=== PATIENT | female | born 1990 | race African-American/Black ===

== ENCOUNTER 2025-08-14 17:44 | Emergency (ER) | payer OTHER, MEDICAID ==
[~2025-08-14] VITALS: Ht 170.2 cm; Wt 91.0 kg
[2025-08-14 17:47] VITALS: O2SAT 100
[2025-08-14 19:27] LABS: HEMATOCRIT. 39.8 % (36.0-48.0); HEMOGLOBIN. 12.6 g/dL (12.0-16.0); MEAN PLATELET VOLUME 9.4 fl (7.4-10.4); PLATELET 321 x1000/uL (130-400); RED BLOOD CELL COUNT 5.07 mill/uL (4.2-5.4); RED CELL DISTRIBUTION WIDTH 14.3 % (11.6-14.6)
[2025-08-14 19:42] LABS: EOSINOPHILS % MANUAL 9.0 % (0.0-5.0); LYMPHOCYTES % MANUAL 25.0 % (20.0-60.0); MONOCYTES % MANUAL 7.0 % (2.0-8.0); NEUTROPHILS % MANUAL 59.0 % (45.0-75.0); PLATELET ESTIMATE NORMAL
[2025-08-14 19:43] LABS: CREATININE 0.7 mg/dL (0.6-1.0); UREA NITROGEN BLOOD < 5 mg/dL (9-23)
[2025-08-14] MEDS ORDERED: P20 MT (19:56)
[2025-08-14] MEDS: PREDNISONE 20MG TABLET PO ONE (20:04)
[2025-08-14] MEDS ORDERED: IBUP-2030 MT (21:03)
[2025-08-14 21:38] VITALS: BP 118/78; PULSE 82; RESP 18; TEMP 37.1; O2SAT 100
== END 2025-08-14 21:40 | disposition home or self-care (01) ==
LOC: ER 17:44
DX: L30.9 Dermatitis, unspecified (principal); J45.909 Unspecified asthma, uncomplicated; Z88.0 Allergy status to penicillin; Z88.1 Allergy status to other antibiotic agents; Z88.2 Allergy status to sulfonamides
CPT/HCPCS: 99283; 80048; 85025; 36415; J7512